=== PATIENT | female | born 1940 | race Caucasian/White ===

== ENCOUNTER 2017-02-08 13:15 | Emergency (ER) | payer MEDICARE ==
[2017-02-08 13:43] VITALS: BP 153/91
== END 2017-02-08 13:45 | disposition home or self-care (01) ==
LOC: ER 13:15
DX: Z48.00 Encounter for change or removal of nonsurgical wound dressing (principal)

== ENCOUNTER 2017-02-21 11:34 | Observation (INO) | payer MEDICARE ==
[2017-02-21 12:13] LABS: Hematocrit 35.7 % (37.0-47.0); Hemoglobin 11.1 gm/dL (12.5-16.0); Mean Corpuscular Hemoglobin 29.8 pg (27-31); Mean Corpuscular Hgb Conc 31.1 g/dl (32-36); Mean Platelet Volume 10.1 fl (6.0-9.5); Platelet Count 145 K/mm3 (150-450); Red Blood Count 3.72 M/mm3 (4.2-5.4); Red Cell Distribution Width 16.1 % (11.5-14.0); White Blood Count 4.3 K/mm3 (4.0-10.5)
[2017-02-21 12:24] LABS: Prothrombin Time (Patient) 27.6 Seconds (9.0-11.0)
[2017-02-21 12:30] LABS: INR 2.73 INR (0.90-1.10)
[2017-02-21 12:33] LABS: Troponin I Less than 0.017 ng/ml (0.00-0.10)
[2017-02-21 12:35] LABS: ALT 16 U/L (19-67); AST 21 U/L (0-48); Albumin * 3.3 gm/dl (3.4-5.0); Alkaline Phosphatase * 112 U/L (50-170); Anion Gap 14.8 mmol/L (6.8-13.8); BNP * 4742 pg/mL (5-550); BUN/Creatinine Ratio 21.5 (9.0-21.6); Bilirubin, Total 0.5 mg/dL (0.0-1.1); Blood Urea Nitrogen 26 mg/dL (3-23); Ca. Corrected For Albumin 9.6 mg/dL (8.4-10.2); Calcium * 9.4 mg/dL (7.9-10.9); Carbon Dioxide 25.9 mmol/L (24-32.6); Chloride 106 mmol/L (97-106); Digoxin 0.5 ng/mL (0.5-2.0); Glucose * 141 mg/dL (70-110); Potassium 4.7 mmol/L (3.4-4.6); Sodium 142 mmol/L (132-142); Total Protein 6.6 gm/dL (6.2-8.2)
[2017-02-21] MEDS ORDERED: LEVOFLOXACIN/D5W 500 MG/100 ML BAG IV SCH (13:30)
--- NOTE | 2017-02-21 13:58 | ERNOTE ---
Dyspnea - Date Date of Service: 02/21/17 - General Presenting Symptoms: shortness of breath Time Seen by Provider: 02/21/17 11:49 Source: patient Exam Limitations: no limitations - Immun/Allergies/Home Medications Immunizations: IMMUNIZATION HX Immunizations Up to Date Yes History of Influenza Vaccine No Hx Pneumococcal Vaccination Yes Allergies/Adverse Reactions: Allergies No Known Drug Allergies Allergy (Verified 02/21/17 11:53) Home Medications: HOME MEDICATIONS Allopurinol [Zyloprim] 300 mg PO DAILY 08/25/15 [Last Taken 10/15/15] Multivit-Min/Iron/Folic/Lutein [Centrum Silver Women Tablet] 1 each PO DAILY [Last Taken 10/15/15] Bumetanide [Bumex] 2 mg PO DAILY PRN 11/07/15 [Last Taken Unknown] Digoxin [Digitek] 125 mcg PO Q48H 11/21/15 [Last Taken 11/20/15] Lansoprazole [Prevacid] 30 mg PO DAILY 11/21/15 [Last Taken Unknown] Levothyroxine Sodium [Synthroid] 75 mcg PO DAILY 11/21/15 [Last Taken Unknown] Metoprolol Succinate [Toprol Xl] 100 mg PO DAILY #30 tablet.sa 02/18/16 [Last Taken Unknown] Warfarin Sodium 2 mg PO MOFR 02/03/17 [Last Taken Unknown] Warfarin Sodium [Jantoven] 3 mg PO SUTUWETHSA 02/03/17 [Last Taken Unknown] Docusate Sodium [Doc-Q-Lace] 100 mg PO DAILY 02/21/17 [Last Taken Unknown] Sennosides [Senna Lax] 8.6 mg PO DAILY 02/21/17 [Last Taken Unknown] - History of Present Illness Narrative: Patient presents to the ED for trouble breathing. On home O2. She had Keytruda infusion earlier this week. Over the last 5 days she has been having increased SOB especially with exertion. no CP. She has gained 3 Obs over the last few days. Some cough. No fever. Denies significant new leg swelling. No PE Sx or DVT Sx. Has not seen anyone else for this. Severity: moderate Treatment MD PSYCHIATRY: other - Bumex Initiating event: Denies: out of meds Frequency of episodes: Reports: occassional episodes Modifying Factors - (Improves): Reports: other - rest. Modifying Factors (Worsens): Reports: activity Associated Symptoms-Dyspnea: Reports: cough. Denies: fever/chills Prior Treatment: Reports: recently seen Review of Systems - Review of Systems Constitutional: Absent: fever Respiratory: Present: shortness of breath, cough Cardiology: Absent: chest pain Gastrointestinal/Abdominal: Absent: abdominal pain Neurological: Absent: weakness All Other Systems: All systems neg except as marked - Patient's Past Medical History Patient History - Medical: Diabetes Type 2, Hypothyroidism, Other Patient History - Cardiac/Respiratory: Atrial Fibrillation, CHF, COPD, Hypertension, Hyperlipidemia, Pulmonary Embolism Patient History - Cancer: No Hx of Cancer, Chemotherapy history, Surgical Treatment Patient History - Surgical Procedures: Appendectomy, Colon Resection, Colonoscopy, , Total Knee Replacement, Other Patient History - Other: None - Family History Father Family History - Medical: , Liver Disease Family History - Cardiac/Respiratory: CHF, Myocardial Infarction Mother Family History - Medical: Family History - Cardiac/Respiratory: Myocardial Infarction - Social History Abuse History: No History of abuse Psych History: No pertinent hx Smoking Status: Former smoker - Immunizations Immunizations Up to Date: Yes Hx Pneumococcal Vaccination: Yes History of Influenza Vaccine: No Physical Exam - Physical Exam General Appearance: Present: alert, no apparent distress Head Exam: Present: normal inspection, no evidence of injury Eye Exam: Normal inspection: bilateral, PERRL: bilateral Ears, Nose, Throat: Present: normal ENT inspection Neck: Present: normal inspection Respiratory: Present: no respiratory distress, no accessory muscle use, crackles Cardiovascular/Chest: Present: normal peripheral pulses, irregularly irregular Gastrointestinal/Abdominal: Present: normal bowel sounds, nontender, nondistended, soft Back Exam: Absent: CVA tenderness (R), CVA tenderness (L) Extremity Exam: Present: normal inspection, non-tender Neurological Exam: Present: alert, normal mood/affect, no motor/sensory deficits Skin Exam: Present: normal color, warm/dry ED Progress - Results and Orders Patient's Lab Results:: I have reviewed the patient's lab results. - Vital Signs Patient's Vital Signs:: I have reviewed the patient's vital signs. Vital Signs: Vital Signs 02/21/17 02/21/17 02/21/17 11:46 11:57 12:33 Temperature 36.2 C L Pulse Rate 77 67 69 Respiratory 25 H 19 Rate Blood Pressure 130/70 120/81 O2 Sat by Pulse 97 94 Oximetry 02/21/17 02/21/17 02/21/17 12:53 13:05 13:39 Temperature Pulse Rate 63 78 70 Respiratory 19 26 H 18 Rate Blood Pressure 118/67 130/70 136/66 O2 Sat by Pulse 96 83 L 96 Oximetry - EKG EKG read: Interp. by me EKG Comments: A fib rate 78, Non-specific ST/T wave changes, no STEMI. - X-Ray X-Ray #1 X-Ray: chest Interpretation: Interp. by me X-ray Comments: I reviewed official radiology report - Progress/Reassessment Chief Complaint: Dyspnea Progress Note-Subjective: 02/21/17 14:24 Pt unable to ambulate but a few steps d/t SOB. Needs admit obs at this time for diuresis and ABx. D/W Dr Kulkarni who will admit. pt and family agreeable. Departure Clinical Impression: SOB (shortness of breath), CHF (congestive heart failure) - Departure Disposition: [facility] Condition: Stable
[2017-02-21] MEDS ORDERED: BUMETANIDE 0.25 MG/ML VIAL IV ONE (14:00)
[2017-02-21] MEDS ORDERED: FLU VACC QS2017-18(6MOS UP)/PF 60 MCG/0.5 ML SYRINGE IM ONE (15:45)
[2017-02-21] MEDS ORDERED: WARFARIN SODIUM 3 MG TABLET PO SCH (17:00)
[2017-02-21] MEDS ORDERED: DIGOXIN 0.125 MG TABLET PO SCH (17:00)
[2017-02-21] MEDS: BUMETANIDE 0.25 MG/ML VIAL IV SCH (17:02)
--- NOTE | 2017-02-21 18:40 | HP ---
Chief Complaint - Chief Complaint Date of Service: 02/21/17 Time of Service: 18:35 Chief Complaint: Dyspnea History of Present Illness: This 76 y/o woman presented to the ED for trouble breathing. She has been on home O2 for 3. She had Keytruda infusion earlier this week, as ongoing treatment for colon cancer diagnosed 2 years ago. Over the last 5 days she has been having increased SOB especially with exertion. no CP. She has gained 3 pounds over the last few days. Some cough. No fever. Denies significant new leg swelling. No PE Sx or DVT Sx. Has not seen anyone else for this. - Patient's Past Medical History Patient History - Medical: Diabetes Type 2, Hypothyroidism, Other Patient History - Cardiac/Respiratory: Atrial Fibrillation, CHF, COPD, Hypertension, Hyperlipidemia, Pulmonary Embolism Patient History - Cancer: Colon, Chemotherapy history, Surgical Treatment Patient History - Surgical Procedures: Appendectomy, Colon Resection, Colonoscopy, , Total Knee Replacement, Other Patient History - Other: None - Family History Father Family History - Medical: , Liver Disease Family History - Cardiac/Respiratory: CHF, Myocardial Infarction Mother Family History - Medical: Family History - Cardiac/Respiratory: Myocardial Infarction - Social History Living Situations: home Abuse History: No History of abuse Psych History: No pertinent hx Smoking Status: Never smoker Have you smoked in the past 12 months: No Do you dip or chew tobacco: No Patient requests Smoking Cessation Consult: No Initiate information on Smoking Cessation: No Alcohol Use: none Drug Use: none - Immunizations Immunizations Up to Date: Yes Hx Pneumococcal Vaccination: Yes History of Influenza Vaccine: No Review Of Systems (GEN) - Review of Systems Generalized/Overall Review: Present: Malaise, Weight gain EENTM: Present: No Symptoms Reported Respiratory: Present: Cough, Shortness of Breath Cardiac: Present: Edema Abdominal: Present: No Symptoms Reported Genitourinary: Present: No Symptoms Reported Musculoskeletal: Present: No Symptoms Reported Neurological: Present: No Symptoms Reported Skin: Present: No Symptoms Reported Endocrine: Present: No Symptoms Reported Immunizations: IMMUNIZATION HX Immunizations Up to Date Yes History of Influenza Vaccine No Hx Pneumococcal Vaccination Yes Allergies/Adverse Reactions: Allergies Allergy/AdvReac Type Severity Reaction Status Date / Time No Known Drug Allergies Allergy Verified 02/21/17 15:00 Home Medications: HOME MEDICATIONS Allopurinol [Zyloprim] 300 mg PO DAILY 08/25/15 [Last Taken 10/15/15] Multivit-Min/Iron/Folic/Lutein [Centrum Silver Women Tablet] 1 each PO DAILY [Last Taken 10/15/15] Bumetanide [Bumex] 2 mg PO DAILY PRN 11/07/15 [Last Taken Unknown] Digoxin [Digitek] 125 mcg PO Q48H 11/21/15 [Last Taken 11/20/15] Lansoprazole [Prevacid] 30 mg PO DAILY 11/21/15 [Last Taken Unknown] Levothyroxine Sodium [Synthroid] 75 mcg PO DAILY 11/21/15 [Last Taken Unknown] Metoprolol Succinate [Toprol Xl] 100 mg PO DAILY #30 tablet.sa 02/18/16 [Last Taken Unknown] Warfarin Sodium 2 mg PO MOFR 02/03/17 [Last Taken Unknown] Warfarin Sodium [Jantoven] 3 mg PO SUTUWETHSA 02/03/17 [Last Taken Unknown] Docusate Sodium [Doc-Q-Lace] 100 mg PO DAILY 02/21/17 [Last Taken Unknown] Sennosides [Senna Lax] 8.6 mg PO DAILY 02/21/17 [Last Taken Unknown] Exam - Exam Vital Signs: Vital Signs - Last Taken Selected Entries Selected Entries 02/21/17 15:37 Temperature 36.7 C Temperature Oral Source Pulse Rate 86 Respiratory 16 Rate Respiratory Normal Depth Respiratory Short of Breath Effort Respiratory Normal Pattern Blood Pressure 130/72 O2 Sat by Pulse 90 Oximetry Oxygen Delivery Nasal Cannula Method Oxygen Flow 4 Rate Constitutional: Present: Alert, Oriented x3, Cooperative, Well developed, Well nourished, Mild distress ENT Exam: Present: normal ENT inspection, hearing grossly normal Neck: Present: normal inspection Back Exam: Present: normal inspection Respiratory: Present: decreased breath sounds, rales Cardiovascular/Chest: Present: regular rate, rhythm Abdomen: Present: Normal bowel sounds, soft, nontender, nondistended, no rebound tenderness, no hepatospenomegaly, other - colostomy Extremity: Present: pedal edema Skin Exam: Present: normal color, no cyanosis Neurologic: Present: alert, oriented x 3 Appearance: Present: appropriate appearance, appropriate insight, neat, no memory impairment Eye contact: Present: cooperative, good eye contact, normal speech Thoughts: Present: normal thought pattern Diagnostic Studies: Laboratory Results WBC 4.3 K/mm3 (4.0-10.5) 02/21/17 12:05 RBC 3.72 M/mm3 (4.2-5.4) L 02/21/17 12:05 Hgb 11.1 gm/dL (12.5-16.0) L 02/21/17 12:05 Hct 35.7 % (37.0-47.0) L 02/21/17 12:05 MCV 96.0 fl (78-100) 02/21/17 12:05 MCH 29.8 pg (27-31) 02/21/17 12:05 MCHC 31.1 g/dl (32-36) L 02/21/17 12:05 RDW 16.1 % (11.5-14.0) H 02/21/17 12:05 Plt Count 145 K/mm3 (150-450) L 02/21/17 12:05 MPV 10.1 fl (6.0-9.5) H 02/21/17 12:05 Immature Gran % (Auto) 0.50 % (0.001-0.429) H 02/21/17 12:05 Immature Gran # (Auto) 0.02 K/mm3 (0.000-0.0310) 02/21/17 12:05 Neutrophils % 69.0 % (42-75.0) 02/21/17 12:05 Lymphocytes % 14.8 % (20-51) L 02/21/17 12:05 Monocytes % 8.8 % (0.0-9) 02/21/17 12:05 Eosinophils % 6.2 % (0.0-3.0) H 02/21/17 12:05 Basophils % 0.7 % (0.0-1.0) 02/21/17 12:05 Nucleated RBC % 0.0 k/mm3 (0-1) 02/21/17 12:05 Neutrophils # 3.0 K/mm3 (1.3-6.0) 02/21/17 12:05 Lymphocytes # 0.6 k/mm3 (1.5-3.5) L 02/21/17 12:05 Monocytes # 0.4 k/mm3 (0.0-1.0) 02/21/17 12:05 Eosinophils # 0.3 k/mm3 (0.0-0.7) 02/21/17 12:05 Absolute Basophils 0.0 k/mm3 (0.0-0.1) 02/21/17 12:05 PT 27.6 Seconds (9.0-11.0) H 02/21/17 12:05 INR (Anticoag Therapy) 2.73 INR (0.90-1.10) H 02/21/17 12:05 Sodium 142 mmol/L (132-142) 02/21/17 12:05 Plasma Sodium 143 mmol/L (130-142) H 02/21/17 12:05 Potassium 4.7 mmol/L (3.4-4.6) H 02/21/17 12:05 Chloride 106 mmol/L (97-106) 02/21/17 12:05 Carbon Dioxide 25.9 mmol/L (24-32.6) 02/21/17 12:05 Anion Gap 14.8 mmol/L (6.8-13.8) H 02/21/17 12:05 BUN 26 mg/dL (3-23) H D 02/21/17 12:05 Creatinine 1.21 mg/dL (0.4-1.4) 02/21/17 12:05 Est GFR (Non-Af Amer) 46 mL/min (60-130) L 02/21/17 12:05 BUN/Creatinine Ratio 21.5 (9.0-21.6) 02/21/17 12:05 Random Glucose 141 mg/dL (70-110) H 02/21/17 12:05 Calcium 9.4 mg/dL (7.9-10.9) 02/21/17 12:05 Calcium Adj for Albumin 9.6 mg/dL (8.4-10.2) 02/21/17 12:05 Total Bilirubin 0.5 mg/dL (0.0-1.1) 02/21/17 12:05 AST 21 U/L (0-48) 02/21/17 12:05 ALT 16 U/L (19-67) L 02/21/17 12:05 Alkaline Phosphatase 112 U/L (50-170) 02/21/17 12:05 Troponin I Less than 0.017 ng/ml (0.00-0.10) 02/21/17 12:05 B-Natriuretic Peptide 4742 pg/mL (5-550) H 02/21/17 12:05 Total Protein 6.6 gm/dL (6.2-8.2) 02/21/17 12:05 Albumin 3.3 gm/dl (3.4-5.0) L 02/21/17 12:05 Digoxin 0.5 ng/mL (0.5-2.0) 02/21/17 12:05 Assessment/Plan - Narrative Narrative: IV bumex. Follow labs. - Assessment/Plan (1) Colon cancer Problem: Chronic (2) Hypoxemic respiratory failure, chronic Problem: Chronic (3) Congestive heart failure (CHF) Problem: Acute Qualifiers: (4) Diabetes mellitus Problem: Suspected (5) Chronic a-fib Problem: Chronic
[2017-02-21] MEDS ORDERED: ACETAMINOPHEN 500 MG TABLET PO PRN (21:55)
[2017-02-21] MEDS: BENZOCAINE/MENTHOL 16 EACH BOX MM PRN (23:02)
[2017-02-22] MEDS: BUMETANIDE 0.25 MG/ML VIAL IV SCH ×2 (01:43→08:58)
[2017-02-22] MEDS ORDERED: HYDROcodone/ACETAMINOPHEN 1 EACH TABLET PO PRN (03:16)
[2017-02-22 05:58] LABS: Prothrombin Time (Patient) 31.9 Seconds (9.0-11.0)
[2017-02-22 05:59] LABS: INR 3.15 INR (0.90-1.10)
[2017-02-22 06:03] LABS: Albumin * 3.2 gm/dl (3.4-5.0); Anion Gap 12.3 mmol/L (6.8-13.8); BUN/Creatinine Ratio 18.6 (9.0-21.6); Bilirubin, Total 0.5 mg/dL (0.0-1.1); Ca. Corrected For Albumin 9.1 mg/dL (8.4-10.2); Calcium * 8.8 mg/dL (7.9-10.9); Carbon Dioxide 27.2 mmol/L (24-32.6); Potassium 3.5 mmol/L (3.4-4.6); Total Protein 6.2 gm/dL (6.2-8.2)
[2017-02-22 06:06] LABS: Hematocrit 33.6 % (37.0-47.0); Hemoglobin 10.5 gm/dL (12.5-16.0); Mean Cell Volume 94.9 fl (78-100); Mean Corpuscular Hemoglobin 29.7 pg (27-31); Mean Corpuscular Hgb Conc 31.3 g/dl (32-36); Mean Platelet Volume 11.3 fl (6.0-9.5); Neutrophil % 66.4 % (42-75.0); Platelet Count 170 K/mm3 (150-450); Red Blood Count 3.54 M/mm3 (4.2-5.4); White Blood Count 4.5 K/mm3 (4.0-10.5)
[2017-02-22] MEDS ORDERED: PANTOPRAZOLE SODIUM 40 MG TABLET.EC PO SCH (07:00)
[2017-02-22] MEDS ORDERED: LEVOTHYROXINE SODIUM 75 MCG TABLET PO SCH (07:00)
[2017-02-22 07:48] VITALS: BP 122/52
[2017-02-22] MEDS ORDERED: ACETAMINOPHEN 325 MG TABLET PO PRN (08:17)
--- NOTE | 2017-02-22 08:49 | DS ---
(1) Colon cancer Problem: Chronic (2) Hypoxemic respiratory failure, chronic Problem: Chronic (3) Congestive heart failure (CHF) Problem: Acute Qualifiers: (4) Diabetes mellitus Problem: Suspected (5) Chronic a-fib Problem: Chronic Description of Stay: Slow improvement with increased IV diuretic. Nasal canula oxygen continued. Procedures Performed: none Discharge Disposition: Home self care Disposition: Home self-care Condition: Stable Discharge Activity: Activity as tolerated Discharge Diet: Low salt Referrals: Chris Coy MD [Primary Care Provider] - Problem Oriented Discharge Instructions to Patient/Family: Heart Failure, Easy- to-Read Prescriptions (Any new or edited meds): Bumetanide [Bumex] 2 mg PO BID PRN #60 tablet PRN Reason: Edema Complete Home Medications List: Complete Home Medication List: Allopurinol [Zyloprim] 300 mg PO DAILY 08/25/15 Multivit-Min/Iron/Folic/Lutein [Centrum Silver Women Tablet] 1 each PO DAILY Digoxin [Digitek] 125 mcg PO Q48H 11/21/15 Lansoprazole [Prevacid] 30 mg PO DAILY 11/21/15 Levothyroxine Sodium [Synthroid] 75 mcg PO DAILY 11/21/15 Metoprolol Succinate [Toprol Xl] 100 mg PO DAILY #30 tablet.sa 02/18/16 Docusate Sodium [Doc-Q-Lace] 100 mg PO DAILY 02/21/17 Sennosides [Senna Lax] 8.6 mg PO DAILY 02/21/17 Acetaminophen [Tylenol] 650 mg PO Q6H PRN tablet 02/22/17 Benzocaine/Menthol [Cepacol Sore Throat] 1 each MM PRN PRN box 02/22/17 Bumetanide [Bumex] 2 mg PO BID PRN #60 tablet 02/22/17 HYDROcodone/ACETAMINOPHEN [[place] 5-325] 2 each PO Q6H PRN tablet 02/22/17
[2017-02-22] MEDS: BENZOCAINE/MENTHOL 16 EACH BOX MM PRN (08:59)
[2017-02-22] MEDS ORDERED: MULTIVIT-MIN/FA/LYCOPEN/LUTEIN 1 TAB TABLET PO SCH (09:00)
[2017-02-22] MEDS ORDERED: METOPROLOL SUCCINATE 100 MG TABLET.SA PO SCH (09:00)
[2017-02-22] MEDS ORDERED: ALLOPURINOL 300 MG TABLET PO SCH (09:00)
[2017-02-22] MEDS ORDERED: SENNOSIDES 8.6 MG TABLET PO SCH (09:00)
[2017-02-22] MEDS ORDERED: DOCUSATE SODIUM 100 MG CAPSULE PO SCH (09:00)
[2017-02-23] MEDS ORDERED: WARFARIN SODIUM 1 TAB TAB PO SCH (17:00)
[2017-02-24] MEDS ORDERED: WARFARIN SODIUM 2 MG TABLET PO SCH (17:00)
== END 2017-02-22 11:30 | disposition home or self-care (01) ==
LOC: ER 11:34 → MS 13:47
PROVIDERS: ADMIT Allergy & Immunology; ATTEND Allergy & Immunology
DX: J96.21 Acute and chronic respiratory failure with hypoxia (principal); I48.2 Chronic atrial fibrillation; Z79.01 Long term (current) use of anticoagulants; C18.9 Malignant neoplasm of colon, unspecified; E11.9 Type 2 diabetes mellitus without complications; I10 Essential (primary) hypertension; E03.9 Hypothyroidism, unspecified; J44.9 Chronic obstructive pulmonary disease, unspecified; Z87.891 Personal history of nicotine dependence; Z86.711 Personal history of pulmonary embolism; E78.5 Hyperlipidemia, unspecified; Z68.25 Body mass index [BMI] 25.0-25.9, adult; Z23 Encounter for immunization
CPT/HCPCS: 36415; 71020; 80053; 80162; 83880; 84484; 85025; 85610; 87040; 90471; 90686; 93005; 96365; 96374; 96375; 96376; 99285; G0378